=== PATIENT | female | born 1950 | race Caucasian/White ===

== ENCOUNTER → 2016-09-20 | Outpatient (CLI) | payer OTHER ==
[~2016-09-20] MED LIST: ATORVASTATIN CA40 MG PO; BENICAR 5 MG5 MG; HYDROCHLOROTHIA25 M2; KLOR-CON 1010 MEQ; LEVOTHYROXIN0.112 M1 PO; PRILOSEC 20 MG20 MG
--- NOTE | ~2016-09-20 | EKG ---
[address] [address] ELECTROCARDIOGRAM REPORT Name: GORGE MARIN Room #: REG [facility]#: [id number] Admission: 09/20/16 Attend Phys: Paulette Rivero MD Discharge: Date of : 46 Report #: [id number] THIS REPORT FOR: //name// 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 : 1950 Requested By: Paulette Rivero Order Number: [id number] MD: Diaz Cornell Measurements Intervals [place] Rate: 60 P: 25 HI: 128 QRS: 16 QRSD: 101 T: -6 QT: 445 QTc: 445 Interpretive Statements Sinus rhythm Low voltage, precordial leads Borderline T abnormalities, inferior leads No previous ECG available for comparison Electronically Signed On 09-20-2016 9:23:44 CDT by Diaz Cornell [email or web address] <ELECTRONICALLY SIGNED> By: Diaz Cornell MD, [facility] 09/20/16922 8 8 Diaz Cornell MD, FACC /EPI
== END ==
LOC: CV 08:57
DX: Z01.818 Encounter for other preprocedural examination (principal)